=== PATIENT | female | born 2000 | race Hispanic/Latino ===

== ENCOUNTER 2022-03-06 13:14 | Emergency (ER) | payer SELFPAY ==
--- NOTE | 2022-03-06 15:19 | ER ---
Nurse's Notes [facility] Name: Carolyn Garay Age: 21 yrs Sex: Female : 2000 Arrival Date: 03/06/2022 Time: 13:16 Bed Waiting Private MD: Diagnosis: Presentation: 03/06 13:27 Chief complaint: Patient states: I have panic attacks - I began feeling anxious and ld1 started having a panic attack 30 minutes ago. Upon arrival to ER SpO2 99% RA. Coronavirus screen: At this time, the client does not indicate any symptoms associated with coronavirus-19. Ebola Screen: No symptoms or risks identified at this time. Initial Sepsis Screen: Does the patient meet any 2 criteria? No. Patient's initial sepsis screen is negative. Does the patient have a suspected source of infection? No. Patient's initial sepsis screen is negative. Risk Assessment: Do you want to hurt yourself or someone else? Patient reports no desire to harm self or others. Onset of symptoms was March 06, 2022. 13:27 Method Of Arrival: Wheelchair ld1 13:27 Acuity: ALVA 3 ld1 Triage Assessment: 13:28 General: Appears in no apparent distress. comfortable, Behavior is cooperative, ld1 anxious. Pain: Denies pain. EENT: No signs and/or symptoms were reported regarding the EENT system. Neuro: Level of Consciousness is awake, alert, obeys commands, Oriented to person, place, time, situation. Cardiovascular: Capillary refill < 3 seconds Patient's skin is warm and dry. Respiratory: Reports shortness of breath Airway is patent Respiratory effort is even, labored, Onset: The symptoms/episode began/occurred gradually, the patient has mild shortness of breath. 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 - Social history:: Smoking status: Patient denies any tobacco usage or history of. Patient/guardian denies using alcohol. Vital Signs: 13: BP 114 / 71; Pulse 94; Resp 24; Temp 98.6(TE); Pulse Ox 99% on R/A; Weight 81.65 kg; ld1 Height 5 ft. 4 in. (162.56 cm); Pain 0/10; 13:27 Body Mass Index 30.90 (81.65 kg, 162.56 cm) ld1 ED Course: 13:16 Patient arrived in ED. as 13:21 Jose Antonio Owens MD is Attending Physician. kdr 13:28 Triage completed. ld1 13:28 Arm band placed on right wrist. ld1 Administered Medications: No medications were administered Outcome: 15:18 Patient left the ED. ld1 Signatures: Jose Antonio Owens MD MD kdr Emily Garcia Lauren, RN RN ld1
[2022-03-06 15:23] VITALS: BP 114/71; TEMP 98.6; O2SAT 99
== END 2022-03-06 15:18 | disposition left against medical advice (07) ==
LOC: ER 13:14
DX: Z53.21 Procedure and treatment not carried out due to patient leaving prior to being seen by health care provider (principal)
CPT/HCPCS: 99281